=== PATIENT | male | born 1950 | race Caucasian/White ===

== ENCOUNTER → 2017-08-05 | Day surgery (SDC) | payer MEDICARE ==
[~2017-08-05] MED LIST: ATROPINE SULFATE 1% OPHT SOLN 5 ML BTL ONE; DEXAMETHASONE SOD PHOS 4 MG/ML VIAL ONE; DOXY100C PO; EPINEPHrine HCL (1:1000) 1 MG/ML VIAL ONE; FLURBIPROFEN 0.03% OPHT SOLN 2.5 ML BTL ONE; HYALURONIDASE/LIDOCAINE/BUPIVACAINE 5 ML SYR ONE; LACTATED RINGER'S 1000 ML INJ 1,000 ML ONE; MIDAZOLAM HCL 2 MG/2 ML VIAL ONE; NEOMYCIN/POLYMYXIN/DEXAMETHASONE OPTH OINT 3.5 GM TUBE ONE; ONDANSETRON HCL 4 MG/2 ML VIAL IV PUSH ONE; PHENYLEPHRINE HCL 2.5 % OPTH SOLN 15 ML BTL ONE; PROPOFOL 100 MG/10 ML INJ IV ONE; SODIUM CHLORIDE 0.9% INJ 10 ML ONE; TETRACAINE 0.5% OPTH SOLN 4 ML BTL ONE; TROPICAMIDE 1% OPHT SOLN 15 ML BTL ONE; TUSSSUS2 PO; ceFAZolin INJ 1,000 MG VIAL ONE
--- NOTE | 2017-08-12 12:40 | MP ---
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 PROCEDURE PERFORMED: Pars plana vitrectomy, membrane peeling, endolaser, silicone oil placement, right eye. ANESTHESIA: MAC. SURGEON: MD Lb COMPLICATIONS: None. PROCEDURE IN DETAIL: After informed consent was obtained, the patient was given retrobulbar anesthesia in the preoperative area. ?? was then brought to the operating room, prepared and draped in the usual sterile fashion. A wire lid speculum was placed in the patient's right eye. A 270 degree conjunctival peritomy was then performed using 0.12 forceps and Norbert scissors. Excellent hemostasis was obtained with bipolar cautery. Scleral conrad were then made 3 mm posterior to the corneoscleral limbus in the lower temporal, supratemporal and superonasal quadrants. A 6-0 Vicryl mattress suture was placed in the right lower temporal adal. 23-gauge vitrectomy cannulas were then placed through these sites and an infusion cannula was placed lower temporally. There had been a previous vitrectomy performed. There was a near total retinal detachment with extensive peripheral vitreoretinopathy present on the surface of the retina. A pick and intraocular forceps were used to peel these membranes. A complete air-fluid exchange was performed and eventual endolaser was placed inferiorly. Silicone oil was then used to fill the vitreous cavity. The two superior vitrectomy cannulas were removed and each site was closed with an interrupted 6-0 Vicryl suture. The infusion cannula was then removed and the mattress suture was tied up permanently. The conjunctiva were repaired using two interrupted 7-0 Vicryl sutures. Subconjunctival injections of dexamethasone and Ancef were placed. Atropine drops, Maxitrol and a patch and shield were then applied. The patient tolerated the procedure well. There were no complications. He will remain on his side for the next week. He will followup tomorrow in our [facility] office. Willian Asher MD TAB/SB , 10:31 AM , 11:08 AM
== END | disposition home or self-care (01) ==
LOC: ESDC 14:19
PROVIDERS: ATTEND Ophthalmology Retina Specialist
DX: H33.41 Traction detachment of retina, right eye (principal)
CPT/HCPCS: 00145; 67113; C1814; J0171; J0690; J1100; J2250; J2405; J3010; J7120